=== PATIENT | male | born 1985 | race American Indian/Alaskan Native ===

== ENCOUNTER 2017-08-03 05:26 | Emergency (ER) | payer SELFPAY ==
[2017-08-03 05:34] VITALS: BP 161/99
[2017-08-03] MEDS ORDERED: TYLENOL PO ONE (05:43)
[2017-08-03] MEDS ORDERED: TRIMOX PO ONE (09:40)
[2017-08-03] MEDS ORDERED: FIORICET PO ONE (09:40)
--- NOTE | 2017-08-03 09:44 | Emergency Department Report ---
ED Headache HPI - General Chief Complaint: Headache Stated Complaint: HEADACHE Time Seen by Provider: 08/03/17 09:00 Source: patient Exam Limitations: no limitations - History of Present Illness Initial Comments: She is a 32-year-old male who presents to ED complaining of throbbing, pounding , aching, constant and increasing right sided temporal and parietal headache put the past 4 days. Patient states initially pain started in his right tooth. Patient states his superior resolved the headache continued. Patient states he cracked his tooth about a week ago on the right side bottom. Patient was admitted to a history of migraine headaches. Patient states that light makes the headache worse and states that he soak some Excedrin and Tylenol temporary listed headaches but comes right back He denies sugar since she says nausea or vomiting, dizziness or blurred vision, head trauma or injuries Timing/Duration: constant, increasing Quality: moderate, achy, constant, throbbing Head Injury Location: temporal Recent Head Trauma: no recent headache/trauma, chronic headaches Modifying Factors: improves with: medication. worse with: exposure to light Associated Symptoms: denies: confusion, nausea/vomiting, nasal congestion, nasal drainage, numbness in legs/feet, vision changes Allergies/Adverse Reactions: Allergies No Known Allergies Allergy (Verified 08/03/17 09:15) Home Medications: Ambulatory Orders HYDROcodone/APAP 5-325 [[place] 5/325] 1 each PO Q6HR PRN #10 tablet 06/02/16 Ondansetron [Zofran Odt] 4 mg PO Q8HR #14 tab.rapdis 06/02/16 Amoxicillin [Trimox CAP] 500 mg PO BID #20 capsule 08/03/17 Butalb/Acetamin/Caff 50-325-40 [Fioricet] 2 tab PO Q8H #24 tablet 08/03/17 metFORMIN [Glucophage] 500 mg PO QDAY #30 tablet 08/03/17 ED Review of Systems ROS: Stated complaint: HEADACHE Other details as noted in HPI Constitutional: denies: chills, fever Eyes: denies: eye pain, eye discharge, vision change ENT: denies: ear pain, throat pain, congestion Respiratory: denies: cough, shortness of breath, wheezing Cardiovascular: denies: chest pain, palpitations Endocrine: no symptoms reported Gastrointestinal: denies: abdominal pain, nausea, vomiting, diarrhea Genitourinary: denies: urgency, dysuria Musculoskeletal: denies: back pain, joint swelling, arthralgia Skin: denies: rash, lesions Neurological: headache. denies: weakness, numbness, paresthesias, confusion Psychiatric: denies: anxiety, depression Hematological/Lymphatic: denies: easy bleeding, easy bruising ED Past Medical Hx - Past Medical History Previous Medical History?: Yes Hx Hypertension: Yes Hx Diabetes: Yes Additional medical history: High cholesterol - Surgical History Hx Cholecystectomy: Yes - Social History Smoking Status: Current Every Day Smoker Substance Use Type: Alcohol - Medications Home Medications: Home Medications Medication Instructions Recorded Confirmed Last Taken Type HYDROcodone/APAP 5-325 [[place] 1 each PO Q6HR PRN #10 tablet 06/02/16 Unknown Rx 5/325] Ondansetron [Zofran Odt] 4 mg PO Q8HR #14 tab.rapdis 06/02/16 Unknown Rx Amoxicillin [Trimox CAP] 500 mg PO BID #20 capsule 08/03/17 Unknown Rx Butalb/Acetamin/Caff 50-325-40 2 tab PO Q8H #24 tablet 08/03/17 Unknown Rx [Fioricet] metFORMIN [Glucophage] 500 mg PO QDAY #30 tablet 08/03/17 Unknown Rx ED Physical Exam - General Limitations: No Limitations General appearance: alert, in no apparent distress - Head Head exam: Present: atraumatic, normocephalic - Eye Eye exam: Present: normal appearance - ENT ENT exam: Present: mucous membranes moist - Neck Neck exam: Present: normal inspection - Respiratory Respiratory exam: Present: normal lung sounds bilaterally. Absent: respiratory distress, wheezes - Cardiovascular Cardiovascular Exam: Present: regular rate, normal rhythm. Absent: systolic murmur, diastolic murmur, rubs, gallop - GI/Abdominal GI/Abdominal exam: Present: soft, normal bowel sounds - Rectal Rectal exam: Present: deferred - Extremities Exam Extremities exam: Present: normal inspection - Back Exam Back exam: Present: normal inspection - Neurological Exam Neurological exam: Present: alert, oriented X3, CN II-XII intact, normal gait, reflexes normal - Expanded Neurological Exam Expanded Patient oriented to: Present: person, place, time Speech: Present: fluid speech Cranial nerves: EOM's Intact: Normal, Facial Sensation: Normal Cerebellar function: Finger to Nose: Normal Sensory exam: Upper Extremity Light Touch: Normal, Lower Extremity Light Touch: Normal Motor strength exam: RUE: 5, LUE: 5, RLE: 5, LLE: 5 Best Eye Response ([place]): (4) open spontaneously Best Motor Response ([place]): (6) obeys commands Best Verbal Response ([place]): (5) oriented [place] Total: 15 - Psychiatric Psychiatric exam: Present: normal affect, normal mood. Absent: depressed, agitated - Skin Skin exam: Present: warm, dry, intact, normal color. Absent: rash ED Course Vital Signs 08/03/17 08/03/17 08/03/17 05:28 05:34 05:50 Temperature 98.8 F 98.8 F Pulse Rate 82 82 Respiratory 16 18 18 Rate Blood Pressure 161/99 161/99 O2 Sat by Pulse 97 97 Oximetry ED Medical Decision Making - Medical Decision Making 32-year-old male presents with a migraine headache/headache secondary to dental pain ED course: Patient received 2 tablets of Fioricet and a Tylenol earlier in triage, CT scan of the head not indicated, pt has no neuro deficits. I discussed this report with the patient. I discussed the patient to continue to take Motrin every 8 hours for pain and get some rest. I discussed with the patient that if headache persists to follow up with neurologist as referred. Disposition follow-up with primary care physician. Patient has no neuro deficits, she is neurologically intact, speaking in full sentences, alert and oriented 3 I discussed the patient is any worsening symptoms or she has new-onset symptoms return to ED immediately Vital signs are normal patient is in no acute distress. Critical care attestation.: If time is entered above; I have spent that time in minutes in the direct care of this critically ill patient, excluding procedure time. ED Disposition Clinical Impression: Pain, dental Acute headache Qualifiers: Headache type: tension-type Intractability: not intractable Qualified Code(s): G44.209 - Tension-type headache, unspecified, not intractable Migraine headache without aura Qualifiers: Status migrainosus presence: without status migrainosus Intractability: not intractable Qualified Code(s): G43.009 - Migraine without aura, not intractable , without status migrainosus Disposition: - TO HOME OR SELFCARE Is pt being admited?: No Does the pt Need Aspirin: No Condition: Stable Instructions: Toothache (ED), Dental Caries (ED), Acute Headache (ED), Migraine Headache (ED) Additional Instructions: Make sure to follow up with the primary care physician as discussed. Take all your medications as you've been prescribed. If you have any worsening symptoms or develop new symptoms please return to ED immediately. Prescriptions: Amoxicillin [Trimox CAP] 500 mg PO BID #20 capsule Butalb/Acetamin/Caff 50-325-40 [Fioricet] 2 tab PO Q8H #24 tablet metFORMIN [Glucophage] 500 mg PO QDAY #30 tablet Referrals: MARANDA WHITAKER MD [Primary Care Provider] - 3-5 Days ANGELES BRADY MD [Staff Physician] - 3-5 Days [facility] [Outside] - 3-5 Days [facility] [Outside] - 3-5 Days Forms: Work/School Release Form(ED) Time of Disposition: 10:36
== END 2017-08-03 10:50 | disposition home or self-care (01) ==
LOC: ED 05:26
DX: G44.209 Tension-type headache, unspecified, not intractable (principal); G43.009 Migraine without aura, not intractable, without status migrainosus; K08.89 Other specified disorders of teeth and supporting structures; F17.200 Nicotine dependence, unspecified, uncomplicated; E78.00 Pure hypercholesterolemia, unspecified; I10 Essential (primary) hypertension; E11.9 Type 2 diabetes mellitus without complications; Z90.49 Acquired absence of other specified parts of digestive tract; Z79.84 Long term (current) use of oral hypoglycemic drugs
CPT/HCPCS: 99282

== ENCOUNTER 2020-02-04 09:47 | Emergency (ER) | payer SELFPAY ==
[2020-02-04 12:02] LABS: Bilirubin,Urine NEG (Negative); Blood,Urine SM (Negative); Color,Urine Yellow (Yellow); Mucus,Urine FEW /HPF; Protein,Urine <15 mg/dL mg/dL (Negative); Urobilinogen,Urine < 2.0 mg/dL (<2.0); WBC,Urine < 1.0 /HPF (0.0-6.0)
--- NOTE | 2020-02-04 12:22 | Ultrasound Report ---
ULTRASOUND TESTICULAR DOPPLER COMPLETE HISTORY: Left-sided testicular pain for one week TECHNIQUE: Grayscale ultrasound with color and spectral Doppler interrogation COMPARISON: None. FINDINGS: The right testicle is homogeneous and measures 3.6 x 2.5 x 3.1 cm. Normal right epididymis. The left testicle demonstrates a heterogeneous echotexture and measures 4.1 x 2.3 x 3.1 cm. The left epididymal head is also mildly thickened and heterogeneous. Color Doppler images suggest hyperemia to the left testicle consistent with epididymoorchitis. No significant hydrocele or varicocele. Spectral Doppler waveforms demonstrate arterial flow bilaterally. IMPRESSION: Findings suggestive of left epididymoorchitis. Signer Name: Andrei Johnson Jr, MD Signed: 02/04/2020 12:18 PM Workstation Name: [id number]
[2020-02-04] MEDS ORDERED: AZITHROMYCIN 250 MG TAB PO ONE (12:29)
[2020-02-04] MEDS ORDERED: LIDOCAINE-MPF (1%) 10 MG/1 ML VIAL 5 ML INFILTRATI ONE (12:29)
--- NOTE | 2020-02-04 12:29 | Emergency Department Report ---
ED Male HPI - General Chief complaint: Urogenital-Male Stated complaint: PAIN GROIN Time Seen by Provider: 02/04/20 11:05 Source: patient Mode of arrival: Ambulatory Limitations: No Limitations - History of Present Illness Initial comments: Patient is a 34-year-old male presents emergency room with complaints of left- sided testicular pain that began a week ago. He denies any injury. He denies any noticeable edema of the testicle, no penile discharge, no abdominal pain, no nausea, no vomiting, no diarrhea, no fever. He states that he does have pressure upon urination. He has a past medical history of prediabetes and hypertension. He states he has not taken his bp medication in 2-1/2 years. He states he was previously on lisinopril. - Related Data Previous Rx's Medication Instructions Recorded Last Taken Type HYDROcodone/APAP 5-325 [[place] 1 each PO Q6HR PRN #10 tablet 06/02/16 Unknown Rx 5/325] Ondansetron [Zofran Odt] 4 mg PO Q8HR #14 tab.rapdis 06/02/16 Unknown Rx Amoxicillin [Trimox CAP] 500 mg PO BID #20 capsule 08/03/17 Unknown Rx Butalb/Acetamin/Caff 50-325-40 2 tab PO Q8H #24 tablet 08/03/17 Unknown Rx [Fioricet 50-325-40] metFORMIN [Glucophage] 500 mg PO QDAY #30 tablet 08/03/17 Unknown Rx Doxycycline Hyclate [Doxycycline 100 mg PO BID 10 Days #20 tab 02/04/20 Unknown Rx Hyclate TAB] Naproxen 500 mg PO BID PRN #20 tablet 02/04/20 Unknown Rx amLODIPine 5 mg PO DAILY #30 tab 02/04/20 Unknown Rx Allergies Allergy/AdvReac Type Severity Reaction Status Date / Time No Known Allergies Allergy Verified 08/03/17 09:15 ED Review of Systems ROS: Stated complaint: PAIN GROIN Other details as noted in HPI ED Past Medical Hx - Past Medical History Previous Medical History?: Yes Hx Hypertension: Yes Hx Diabetes: Yes Additional medical history: High cholesterol - Surgical History Past Surgical History?: Yes Hx Cholecystectomy: Yes - Social History Smoking Status: Current Every Day Smoker Substance Use Type: None - Medications Home Medications: Home Medications Medication Instructions Recorded Confirmed Last Taken Type HYDROcodone/APAP 5-325 [[place] 1 each PO Q6HR PRN #10 tablet 06/02/16 Unknown Rx 5/325] Ondansetron [Zofran Odt] 4 mg PO Q8HR #14 tab.rapdis 06/02/16 Unknown Rx Amoxicillin [Trimox CAP] 500 mg PO BID #20 capsule 08/03/17 Unknown Rx Butalb/Acetamin/Caff 50-325-40 2 tab PO Q8H #24 tablet 08/03/17 Unknown Rx [Fioricet 50-325-40] metFORMIN [Glucophage] 500 mg PO QDAY #30 tablet 08/03/17 Unknown Rx Doxycycline Hyclate [Doxycycline 100 mg PO BID 10 Days #20 tab 02/04/20 Unknown Rx Hyclate TAB] Naproxen 500 mg PO BID PRN #20 tablet 02/04/20 Unknown Rx amLODIPine 5 mg PO DAILY #30 tab 02/04/20 Unknown Rx ED Physical Exam - General Limitations: No Limitations General appearance: alert, in no apparent distress - Head Head exam: Present: atraumatic, normocephalic - Eye Eye exam: Present: normal appearance - ENT ENT exam: Present: mucous membranes moist - Respiratory Respiratory exam: Present: normal lung sounds bilaterally. Absent: respiratory distress, wheezes, rales, rhonchi, stridor, chest wall tenderness, accessory muscle use, decreased breath sounds, prolonged expiratory - Cardiovascular Cardiovascular Exam: Present: regular rate, normal rhythm, normal heart sounds. Absent: systolic murmur, diastolic murmur, rubs, gallop - GI/Abdominal GI/Abdominal exam: Present: soft, normal bowel sounds. Absent: distended, tenderness, guarding, rebound, rigid - exam: Present: testicular tenderness (left), scrotal swelling (mild left), other (director construction services: efrain, motion graphics artist, normal testicular lie, normal cremasteric reflex, ttp to the left testicle and left epididymis, there is mild edema of the left epididymis and left testicle, no abnormality to the right testicle ). Absent: urethral discharge External exam: Present: normal external exam - Neurological Exam Neurological exam: Present: alert, oriented X3 - Psychiatric Psychiatric exam: Present: normal affect, normal mood - Skin Skin exam: Present: warm, dry, intact ED Course Vital Signs 02/04/20 02/04/20 09:56 13:19 Temperature 97.9 F 98.5 F Pulse Rate 80 68 Respiratory 18 18 Rate Blood Pressure 182/108 Blood Pressure 156/103 [Left] O2 Sat by Pulse 95 Oximetry ED Medical Decision Making - Lab Data Lab Results 02/04/20 02/04/20 Range/Units 11:41 13:19 POC Glucose 149 H (70-105) Urine Color Yellow (Yellow) Urine Turbidity Clear (Clear) Urine pH 5.0 (5.0-7.0) Ur Specific [place] 1.014 (1.003-1.030) Urine Protein <15 mg/dl (Negative) mg/dL Urine Glucose (UA) Neg (Negative) mg/dL Urine Ketones Neg (Negative) mg/dL Urine Blood Sm (Negative) Urine Nitrite Neg (Negative) Urine Bilirubin Neg (Negative) Urine Urobilinogen < 2.0 (<2.0) mg/dL Ur Leukocyte Esterase Neg (Negative) Urine WBC (Auto) < 1.0 (0.0-6.0) /HPF Urine RBC (Auto) 2.0 (0.0-6.0) /HPF U Epithel Cells (Auto) < 1.0 (0-13.0) /HPF Urine Mucus Few /HPF Vital Signs 02/04/20 02/04/20 09:56 13:19 Temperature 97.9 F 98.5 F Pulse Rate 80 68 Respiratory 18 18 Rate Blood Pressure 182/108 Blood Pressure 156/103 [Left] O2 Sat by Pulse 95 Oximetry - Radiology Data Radiology results: report reviewed ULTRASOUND TESTICULAR DOPPLER COMPLETE HISTORY: Left-sided testicular pain for one week TECHNIQUE: Grayscale ultrasound with color and spectral Doppler interrogation COMPARISON: None. FINDINGS: The right testicle is homogeneous and measures 3.6 x 2.5 x 3.1 cm. Normal right epididymis. The left testicle demonstrates a heterogeneous echotexture and measures 4.1 x 2.3 x 3.1 cm. The left epididymal head is also mildly thickened and heterogeneous. Color Doppler images suggest hyperemia to the left testicle consistent with epididymoorchitis. No significant hydrocele or varicocele. Spectral Doppler waveforms demonstrate arterial flow bilaterally. IMPRESSION: Findings suggestive of left epididymoorchitis. Signer Name: Andrei Brown Jr, MD Signed: 02/04/2020 12:18 PM Workstation Name: [id number] Transcribed By: TTR Dictated By: ANDREI BROWN JR, MD Electronically Authenticated By: ANDREI BROWN JR, MD Signed Date/Time: 02/04/20 1218 DD/ 1215 TD/TT: - Medical Decision Making Patient is a 34-year-old male presents emergency room with complaints of left- sided testicular pain that began a week ago. He denies any injury. He denies any noticeable edema of the testicle, no penile discharge, no abdominal pain, no nausea, no vomiting, no diarrhea, no fever. He states that he does have pressure upon urination. He has a past medical history of prediabetes and hypertension. He states he has not taken his bp medication in 2-1/2 years. He states he was previously on lisinopril. Initial vitals with elevated blood pressure which improved upon repeat, otherwise vitals are normal. on exam: director construction services: efrain, motion graphics artist, normal testicular lie, normal cremasteric reflex, ttp to the left testicle and left epididymis, there is mild edema of the left epididymis and left testicle, no abnormality to the right testicle. testicular US: Findings suggestive of left epididymoorchitis. UA is WNL. blood glucose accucheck is 149. G/C sent. Discussed all results with patient and answered questions. Patient given ceftriaxone and azithromycin. Patient given prescription for doxycycline, naproxen, amlodipine. Advised patient Please take medication as prescribed. 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 Please avoid sexual intercourse for 10 days. Please have any partner tested and treated as well. Please go to the health department or clinic for full STD panel. Please follow-up with a primary care doctor. Please keep a blood pressure log and take this to the primary care doctor, eat a low-sodium diet, incorporate 30 minutes of daily exercise, increase your water intake. Follow-up with a urologist. Return to emergency room for any new or worsening symptoms. - Differential Diagnosis Mass, epididymitis, orchitis, STD, torsion, spermatocele Critical care attestation.: If time is entered above; I have spent that time in minutes in the direct care of this critically ill patient, excluding procedure time. ED Disposition Clinical Impression: Left epididymitis, Orchitis of left testicle, Elevated blood pressure reading Disposition: DC-01 TO HOME OR SELFCARE Is pt being admited?: No Does the pt Need Aspirin: No Condition: Stable Instructions: Epididymo-orchitis (ED), Chronic Hypertension (ED) Additional Instructions: Please take medication as prescribed. 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 Please avoid sexual intercourse for 10 days. Please have any partner tested and treated as well. Please go to the health department or clinic for full STD panel. Please follow-up with a primary care doctor. Please keep a blood pressure log and take this to the primary care doctor, eat a low- sodium diet, incorporate 30 minutes of daily exercise, increase your water intake. Follow-up with a urologist. Return to emergency room for any new or worsening symptoms. Prescriptions: amLODIPine 5 mg PO DAILY #30 tab Doxycycline Hyclate [Doxycycline Hyclate TAB] 100 mg PO BID 10 Days #20 tab Naproxen 500 mg PO BID PRN #20 tablet PRN Reason: pain Referrals: [facility] [Outside] - 2-3 Days LIV JIANG MD [Staff Physician] - 2-3 Days [facility] [Provider Group] - 2-3 Days LORETTA TAN MD [Staff Physician] - 2-3 Days Forms: STI Treatment and Prevention, Work/School Release Form(ED) Time of Disposition: 13:06 Print Language: TAJIK
[2020-02-04 13:20] VITALS: BP 156/103
== END 2020-02-04 13:26 | disposition home or self-care (01) ==
LOC: ED 09:47
DX: N45.1 Epididymitis (principal); N45.2 Orchitis; R03.0 Elevated blood-pressure reading, without diagnosis of hypertension; I10 Essential (primary) hypertension; E11.9 Type 2 diabetes mellitus without complications; E78.00 Pure hypercholesterolemia, unspecified; F17.200 Nicotine dependence, unspecified, uncomplicated; Z90.49 Acquired absence of other specified parts of digestive tract; Z79.899 Other long term (current) drug therapy
CPT/HCPCS: 81001; 82962; 87591; 93975; 96372; 99284; J0696